=== PATIENT | male | born 1940 | race Caucasian/White ===

== ENCOUNTER 2022-05-20 08:59 | Emergency (ER) | payer MEDICARE, BC ==
[~2022-05-20] VITALS: Ht 177.8 cm; Wt 90.7 kg
[2022-05-20] MEDS ORDERED: CARV25 PO (09:46)
[2022-05-20] MEDS ORDERED: LOSA25 PO (09:46)
[2022-05-20 10:21] LABS: BASOPHILS ABSOLUTE AUTO 0.02 K/mm3 (0.00-0.23); BASOPHILS PERCENT AUTO 0 % (0-2); EOSINOPHILS ABSOLUTE AUTO 0.17 K/mm3 (0.00-0.68); EOSINOPHILS PERCENT AUTO 4 % (0-6); Hematocrit 42.9 % (37.0-53.0); Hemoglobin 14.2 g/dL (13.5-17.5); IMMATURE GRAN ABSOLUTE AUTO 0.01 K/mm3 (0.00-0.10); IMMATURE GRAN PERCENT AUTO 0 % (0-1); LYMPHOCYTES ABSOLUTE AUTO 0.81 K/mm3 (0.84-5.20); LYMPHOCYTES PERCENT AUTO 17 % (21-46); MONOCYTES ABSOLUTE AUTO 0.35 K/mm3 (0.16-1.47); MONOCYTES PERCENT AUTO 7 % (4-13); Mean Corpuscular HGB 27.9 pg (26.0-34.0); Mean Corpuscular HGB Conc 33.1 g/dL (31.5-36.5); Mean Corpuscular Volume 84 fL (80-100); Mean Platelet Volume 9.7 fL (9.1-12.4); NEUTROPHILS ABSOLUTE AUTO 3.34 K/mm3 (1.96-9.15); NEUTROPHILS PERCENT AUTO 71 % (41-73); Platelet Count 177 K/mm3 (150-400); RDW Standard Deviation 39.8 fL (35.1-46.3); Red Blood Cell Count 5.09 M/mm3 (4.30-5.90)
[2022-05-20 10:49] LABS: Albumin, Blood 3.5 g/dL (3.4-5.0); Albumin/Globulin Ratio 1.1 (0.8-1.8); Bilirubin, Total 0.9 mg/dL (0.1-1.0); Bun/Creatinine Ratio 12.1 (12.0-20.0); Calcium, Blood 9.2 mg/dL (8.5-10.1); Creatinine, Blood 1.32 mg/dL (0.60-1.20); Globulin, Blood 3.2 g/dL (2.2-4.0); Magnesium, Blood 2.2 mg/dL (1.6-2.4); Potassium, Blood 4.4 mmol/L (3.5-5.5); Thyroid Stimulating Hormone 1.08 uIU/mL (0.360-4.800); Total Protein, Blood 6.7 g/dL (6.4-8.2)
== END 2022-05-20 12:20 | disposition home or self-care (01) ==
LOC: ER 08:59
PROVIDERS: Emergency Medicine
DX: R00.2 Palpitations (principal); I10 Essential (primary) hypertension; Z79.899 Other long term (current) drug therapy; Z87.891 Personal history of nicotine dependence
CPT/HCPCS: 36415; 80053; 83735; 84443; 84484; 85025; 93005; 93010; 93246

== ENCOUNTER 2022-11-08 07:57 | Emergency (ER) | payer MEDICARE, BC ==
[~2022-11-08] VITALS: Ht 182.9 cm; Wt 95.2 kg
[~2022-11-08 07:57] MED LIST: CARV25 PO; LOSA25 PO
[2022-11-08] MEDS ORDERED: FINA5 PO (08:10)
[2022-11-08] MEDS ORDERED: ELIQUIS5 M2 PO (08:11)
[2022-11-08] MEDS ORDERED: TAMS.4ER PO (08:11)
[2022-11-08 08:34] LABS: Source, Urine Clean Catch
[2022-11-08 08:38] LABS: Appearance, Urine Clear (Clear); Bilirubin, Urine Neg (Neg); Blood, Urine Neg (Neg); Color, Urine Yellow (P-Yellow); Glucose Qualitative, Urine Neg (Neg); Ketones, Urine Neg (Neg); Leukocyte Esterase, Urine Neg (Neg); Nitrite, Urine Neg (Neg); Protein, Urine Neg (Neg); Specific Gravity, Urine 1.015 (1.003-1.022); Urobilinogen, Urine NORM (Normal)
[2022-11-08] MEDS ORDERED: Oxybutynin Chlor5 M1 PO ×2 (09:37→09:39)
== END 2022-11-08 09:54 | disposition home or self-care (01) ==
LOC: ER 07:57
PROVIDERS: Physician Assistant
DX: N32.81 Overactive bladder (principal); I10 Essential (primary) hypertension; Z79.899 Other long term (current) drug therapy; Z79.01 Long term (current) use of anticoagulants; Z87.891 Personal history of nicotine dependence
CPT/HCPCS: 81003

== ENCOUNTER 2023-03-03 23:56 | Emergency (ER) | payer MEDICARE, BC ==
[~2023-03-03] VITALS: Ht 182.9 cm; Wt 89.8 kg
[~2023-03-03 23:56] MED LIST changes: +ELIQUIS5 M2 PO; +FINA5 PO; +Oxybutynin Chlor5 M1 PO; +TAMS.4ER PO
[2023-03-04 00:08] VITALS: BP 141/78
[2023-03-04 00:20] LABS: Source, Urine Clean Catch
[2023-03-04 00:31] LABS: Bilirubin, Urine Neg (Neg); Blood, Urine 5+ (Neg); Glucose Qualitative, Urine Neg (Neg); Ketones, Urine Neg (Neg); Leukocyte Esterase, Urine 3+ (Neg); Nitrite, Urine Neg (Neg); Protein, Urine 1+ (Neg); Urobilinogen, Urine NORM (Normal)
[2023-03-04 00:41] LABS: Appearance, Urine Hazy (Clear); Color, Urine Yellow (P-Yellow)
[2023-03-04 00:47] LABS: Bacteria Few /hpf; Red Blood Cells, Urine 25-50 /hpf (0-2); Squamous Epithelial Cells Not Seen /hpf (Few); White Blood Cells, Urine 50-100 /hpf (0-5)
[2023-03-04] MEDS ORDERED: PHENA200 PO (02:44)
[2023-03-04] MEDS ORDERED: CIPR500 PO (02:44)
== END 2023-03-04 03:00 | disposition home or self-care (01) ==
LOC: ER 23:56
PROVIDERS: Student in an Organized Health Care Education/Training Program
DX: N39.0 Urinary tract infection, site not specified (principal); I10 Essential (primary) hypertension; Z87.442 Personal history of urinary calculi; Z79.01 Long term (current) use of anticoagulants; Z79.899 Other long term (current) drug therapy
CPT/HCPCS: 81001; 87086; 99283; A9270

== ENCOUNTER 2023-05-22 18:33 | Emergency (ER) | payer MEDICARE, BC ==
[~2023-05-22] VITALS: Ht 182.9 cm; Wt 90.7 kg
[~2023-05-22 18:33] MED LIST changes: +CEFP200 PO; +CIPR500 PO; +PHENA200 PO
[2023-05-22 19:01] LABS: Source, Urine Clean Catch
[2023-05-22 19:41] LABS: Appearance, Urine Clear (Clear); Bilirubin, Urine Neg (Neg); Blood, Urine Neg (Neg); Glucose Qualitative, Urine Neg (Neg); Ketones, Urine Neg (Neg); Leukocyte Esterase, Urine Neg (Neg); Nitrite, Urine Neg (Neg); Protein, Urine Neg (Neg); Urobilinogen, Urine NORM (Normal); pH, Urine 6.5 (5.0-8.0)
[2023-05-22 19:56] LABS: Color, Urine Pale Yellow (P-Yellow)
[2023-05-22 21:30] VITALS: BP 134/74
== END 2023-05-22 22:19 | disposition home or self-care (01) ==
LOC: ER 18:33
PROVIDERS: Student in an Organized Health Care Education/Training Program
DX: R35.0 Frequency of micturition (principal); Z79.899 Other long term (current) drug therapy; I10 Essential (primary) hypertension; Z87.891 Personal history of nicotine dependence
CPT/HCPCS: 81003

== ENCOUNTER 2024-10-19 07:05 | Inpatient (IN) | payer OTHER, MEDICARE ==
[~2024-10-19] VITALS: Ht 172.7 cm; Wt 94.0 kg
[2024-10-19] MEDS ORDERED: Albuterol 2.5 MG/3 ML VIAL INH SCH ×2 (07:25→09:45)
[2024-10-19] MEDS ORDERED: Ipratropium/Albuterol SulF 2.5-0.5MG/3 ML Amp INH ONE (07:25)
[2024-10-19] MEDS ORDERED: MethylPREDNISolone Sod Succ 125 MG Vial IV ONE (07:35)
[2024-10-19 07:37] LABS: BASOPHILS ABSOLUTE AUTO 0.01 K/mm3 (0.00-0.23); BASOPHILS PERCENT AUTO 0 % (0-2); EOSINOPHILS PERCENT AUTO 1 % (0-6); Hematocrit 42.1 % (37.0-53.0); Hemoglobin 14.5 g/dL (13.5-17.5); IMMATURE GRAN ABSOLUTE AUTO 0.03 K/mm3 (0.00-0.10); IMMATURE GRAN PERCENT AUTO 0 % (0-1); LYMPHOCYTES ABSOLUTE AUTO 0.79 K/mm3 (0.84-5.20); LYMPHOCYTES PERCENT AUTO 11 % (21-46); MONOCYTES ABSOLUTE AUTO 0.49 K/mm3 (0.16-1.47); MONOCYTES PERCENT AUTO 7 % (4-13); Mean Corpuscular HGB 27.9 pg (26.0-34.0); Mean Corpuscular HGB Conc 34.4 g/dL (31.5-36.5); Mean Corpuscular Volume 81 fL (80-100); Mean Platelet Volume 8.6 fL (9.1-12.4); NEUTROPHILS ABSOLUTE AUTO 5.87 K/mm3 (1.96-9.15); NEUTROPHILS PERCENT AUTO 81 % (41-73); Platelet Count 226 K/mm3 (150-400); RDW Coefficient Variation 13.1 % (11.7-14.2); White Blood Cell Count 7.29 K/mm3 (4.00-11.30)
[2024-10-19 08:01] LABS: Albumin, Blood 3.1 g/dL (3.4-5.0); Albumin/Globulin Ratio 0.8 (0.8-1.8); Bilirubin, Total 0.8 mg/dL (0.1-1.0); Bun/Creatinine Ratio 12.8 (12.0-20.0); Calcium, Blood 8.9 mg/dL (8.5-10.1); Creatinine, Blood 1.09 mg/dL (0.60-1.20); Magnesium, Blood 1.8 mg/dL (1.6-2.4); Potassium, Blood 4.1 mmol/L (3.5-5.5); Total Protein, Blood 7.1 g/dL (6.4-8.2)
[2024-10-19 08:39] LABS: Influenza B, PCR NEGATIVE (NEGATIVE); Resp Syncytial Virus, PCR NEGATIVE (NEGATIVE); SARS-Cov-2 (COVID-19) PCR, MMC NEGATIVE (NEGATIVE)
[2024-10-19 09:23] LABS: Influenza A, PCR POSITIVE (NEGATIVE)
[2024-10-19] MEDS ORDERED: Oseltamivir Phosphate 75 MG Cap PO ONE (09:45)
[2024-10-19] MEDS ORDERED: Ipratropium/Albuterol SulF 2.5-0.5MG/3 ML Amp INH SCH (11:50)
[2024-10-19] MEDS ORDERED: Prochlorperazine Edisylate 10 mg Vial IV PRN (11:55)
[2024-10-19] MEDS ORDERED: Azithromycin 500 MG in NS 250 ML IV ONE (12:40)
[2024-10-19 14:01] VITALS: BP 113/96
[2024-10-19] MEDS ORDERED: FLU VACC TS2024-25(6MOS UP)/PF 45 MCG/0.5 ML SYRINGE IM ONE (15:00)
[2024-10-19] MEDS ORDERED: EZET10 PO (15:24)
[2024-10-19] MEDS ORDERED: METO100ER PO (15:25)
[2024-10-19] MEDS ORDERED: GABA300 PO (15:26)
[2024-10-19] MEDS ORDERED: Crestor40 MG PO (15:27)
[2024-10-19] MEDS ORDERED: TIOT18 INH (15:27)
--- NOTE | 2024-10-19 15:41 | NUR ---
ADMISSION NOTE: PATIENT ARRIVED TO THE UNIT AT 1355 VIA GURNEY. HE WAS ABLE TO SELF TRANSFER TO THE BED. HE IS SHORT OF BREATH, USING 2 L OF NASAL CANNULA WHEN NORMALLY ON ROOMAIR. PATIENT SETTLED IN ROOM, ALERT AND ORIENTED, PLEASANT/COOPERATIVE, MAKES NEEDS KNOWN. HE IS IN BED, FAMILY AT BEDSIDE, NO SIGNS OR SYMPTOMS OF DISTRESS, CALL LIGHT WITHIN REACH, PLAN OF CARE ONGOING.
[2024-10-19] MEDS ORDERED: MethylPREDNISolone Sod Succ 125 MG Vial IV SCH (16:00)
--- NOTE | 2024-10-19 16:52 | NUR ---
CALLED AND NOTIFIED DR. VILLAGOMEZ OF PATIENT'S BLOOD SUGAR OF 310. HE VERBALIZED TO START PATIENT ON A HUMALOG LOW SLIDING SCALE. ALSO REQUESTING SOMETHING FOR PATIENT'S COUGH, ORDER FOR TESSALON PEARLS 100 MG QID PRN WAS VERBALLY GIVEN.
[2024-10-19] MEDS ORDERED: Benzonatate 100 MG Cap PO PRN (16:55)
[2024-10-19] MEDS ORDERED: Carvedilol 6.25 MG Tab PO SCH (17:00)
[2024-10-19] MEDS ORDERED: Insulin Human Lispro 100 Units/ML 3ML Syringe SC ONE (17:15)
--- NOTE | 2024-10-19 17:16 | NUR ---
SHIFT SUMMARY: NO EVENTS OR CHANGES WITH THE PATIENT SINCE ADMISSION. HE IS IN BED, CALL LIGHT WITHIN REACH, NO SIGNS OR SYMPTOMS OF DISTRESS, PLAN OF CARE ONGOING.
[2024-10-19] MEDS ORDERED: Albuterol 2.5 MG/3 ML VIAL INH PRN (18:15)
--- NOTE | 2024-10-19 20:10 | NUR ---
NEW T-ORDER RECEIVED FROM ON-CALL HOSPITALIST MADDIE: GABAPENTIN 300MG TID PO. THIS ADVERTISING JOB TITLES ALSO ASKED ABOUT NEW PO ORDER FOR FLOMAX 0.4MG ORDER @ HS, BUT NOTICED IT WAS ALREADY ORDERED FOR QAM. DID NOT CHANGE THE CURRENT ORDER. ENTERED GABAPENTIN ORDER TO [employer], SEE EMAR. NO ADDITIONAL NEW ORDERS AT THIS TIME.
[2024-10-19] MEDS ORDERED: Apixaban 5 MG Tab PO SCH (21:00)
[2024-10-19] MEDS ORDERED: Insulin Human Lispro 100 Units/ML 3ML Syringe SC SCH (21:00)
[2024-10-19] MEDS ORDERED: Gabapentin 300 MG Cap PO SCH (21:00)
[2024-10-19 21:14] VITALS: BP 130/72
--- NOTE | 2024-10-20 03:06 | NUR ---
SHIFT SUMMARY @HS PT REQUESTING GABAPENTIN AND HS MEDICATION REGIMEN THAT HE TAKES @HOME. PT APPEARED AGITATED WHEN LATER ADMINISTERING THE MEDICATIONS (SEE PREVIOUS NOTE). PT REPORTED AT HS THAT WOULD LIKE TO D/C TOMORROW MORNING. THIS EMERGENCY MANAGEMENT PROGRAM SPECIALIST USED ACTIVE LISTENING AND EMPHATY. PT IS ON 2L O2 VIA NASAL CANNULA, O2 SAT'S> 93%. PT DENIES PAIN. OCCASIONAL NON-PRODUCTIVE COUGH NOTED @HS. BED AT THE LOWEST POSITION, CALL LIGHT WITHIN REACH. PT IS A&O X4, ABLE TO MAKE HIS NEEDS KNOWN.
[2024-10-20 05:10] LABS: Base Excess Venous -0.1 mmol/L; Bicarbonate Venous 24.4 mmol/L (24.0-30.0); PCO2 Venous 36.8 mmHg (38-42); pH Blood Venous 7.43 (7.34-7.37)
[2024-10-20 05:42] LABS: Hematocrit 37.6 % (37.0-53.0); Mean Corpuscular HGB 27.9 pg (26.0-34.0); Mean Corpuscular HGB Conc 34.6 g/dL (31.5-36.5); Mean Corpuscular Volume 81 fL (80-100); Platelet Count 246 K/mm3 (150-400); RDW Standard Deviation 37.3 fL (35.1-46.3); Red Blood Cell Count 4.66 M/mm3 (4.30-5.90); White Blood Cell Count 9.83 K/mm3 (4.00-11.30)
[2024-10-20 06:17] VITALS: BP 130/60
[2024-10-20 06:25] LABS: Bun/Creatinine Ratio 20.5 (12.0-20.0); Calcium, Blood 9.5 mg/dL (8.5-10.1); Creatinine, Blood 1.22 mg/dL (0.60-1.20); Potassium, Blood 4.5 mmol/L (3.5-5.5)
[2024-10-20 07:55] VITALS: BP 124/74
--- NOTE | 2024-10-20 08:02 | NUR ---
ASSUMED CARE OF PATIENT. FAMILY IN TO VISIT.
[2024-10-20] MEDS ORDERED: Losartan Potassium 50 MG Tab PO SCH (09:00)
[2024-10-20] MEDS ORDERED: Azithromycin 250 MG Tab PO SCH (09:00)
[2024-10-20] MEDS ORDERED: Finasteride 5 MG Tab PO SCH (09:00)
[2024-10-20] MEDS ORDERED: Tamsulosin HCl 0.4 MG Cap PO SCH ×2 (09:00→21:00)
[2024-10-20] MEDS ORDERED: METF500 PO (10:22)
[2024-10-20 15:03] VITALS: BP 127/65
--- NOTE | 2024-10-20 17:38 | NUR ---
END OF SHIFT SUMMARY: A&Ox4. PLEASANT AND COOPERATIVE WITH CARE. CALLS APPROPRIATELY AND IS ABLE TO ADVOCATE NEEDS EFFECTIVELY. INDEPENDENT WITH AMBULATION IN ROOM. CONTINENT OF BOWEL AND BLADDER. SHOWERED TODAY. LUNGS CONTINUE TO BE VERY COARSE THROUGHOUT. SUCTION @ BEDSIDE AND SELF-SUCTIONS. NO C / O PAIN OR DISCOMFORT. CONTINUES WITH IV STEROIDS. BLOOD SUGARS HIGH TODAY, LIKELY RELATED TO STEROIDS. THIS IS A NEW DIAGNOSIS; EDUCATION PROVIDED ON DM SUGARS WNL. BED IN LOWEST POSITION, CALL LIGHT WITHIN REACH, ALL NEEDS MET. REPORT TO ONCOMING NURSE.
[2024-10-20 20:11] VITALS: BP 139/68
[2024-10-20] MEDS ORDERED: Insulin Glargine-Yfgn 100 Unit/mL 3 ML SYR SC SCH (21:00)
[2024-10-20] MEDS ORDERED: PredniSONE 20 MG Tab PO SCH (21:00)
--- NOTE | 2024-10-20 21:46 | NUR ---
@ B. ON-CALL HOSPITALIST SUELLEN NOTIFIED. INSULIN ADMINISTERED ORDERED PER EMAR. NO NEW ORDERS AT THIS TIME.
--- NOTE | 2024-10-21 03:42 | NUR ---
SHIFT SUMMARY NO ACUTE EVENTS DURING THIS SHIFT. HS B, ON-CALL HOSPITALIST NOTIFIED. SCHEDULED GLARGINE AND HUMALOG ADMINISTERED ORDERED. PT CONTINUES ON 2L O2 VIA NASAL CANNULA, SAT'S>93%. TESSALON PEARLS PO PRN FOR PRODUCTIVE COUGH ADMINISTERED ORDERED. PT IS A/O X4, ABLE TO MAKE HIS NEEDS KNOWN AND COOPERATIVE WITH CARE. BED AT THE LOWEST POSITION, CALL LIGHT WITHIN REACH.
[2024-10-21 04:56] VITALS: BP 147/75
[2024-10-21 05:31] LABS: Base Excess Venous -0.4 mmol/L; Bicarbonate Venous 25.3 mmol/L (24.0-30.0); pH Blood Venous 7.55 (7.34-7.37)
[2024-10-21 05:35] LABS: BASOPHILS ABSOLUTE AUTO 0.01 K/mm3 (0.00-0.23); BASOPHILS PERCENT AUTO 0 % (0-2); EOSINOPHILS PERCENT AUTO 0 % (0-6); Hematocrit 36.2 % (37.0-53.0); Hemoglobin 12.3 g/dL (13.5-17.5); IMMATURE GRAN ABSOLUTE AUTO 0.11 K/mm3 (0.00-0.10); IMMATURE GRAN PERCENT AUTO 1 % (0-1); LYMPHOCYTES ABSOLUTE AUTO 0.52 K/mm3 (0.84-5.20); LYMPHOCYTES PERCENT AUTO 4 % (21-46); MONOCYTES PERCENT AUTO 4 % (4-13); Mean Corpuscular HGB 27.8 pg (26.0-34.0); Mean Corpuscular Volume 82 fL (80-100); Mean Platelet Volume 9.2 fL (9.1-12.4); NEUTROPHILS ABSOLUTE AUTO 10.61 K/mm3 (1.96-9.15); NEUTROPHILS PERCENT AUTO 90 % (41-73); Platelet Count 242 K/mm3 (150-400); RDW Standard Deviation 38.5 fL (35.1-46.3); Red Blood Cell Count 4.42 M/mm3 (4.30-5.90); White Blood Cell Count 11.75 K/mm3 (4.00-11.30)
--- NOTE | 2024-10-21 05:45 | NUR ---
CRITICAL LAB VALUE RECEIVED FROM BLOSSOM Valdes FROM THE RESPIRATORY @ 0435: VBG pH: 7.55. @8102 this medical underwriter notified the on-call hospitalist . [employer] Clerk Grayson notified.
[2024-10-21 06:04] LABS: Bun/Creatinine Ratio 29.2 (12.0-20.0); Calcium, Blood 9.2 mg/dL (8.5-10.1); Creatinine, Blood 1.06 mg/dL (0.60-1.20); Potassium, Blood 4.7 mmol/L (3.5-5.5)
[2024-10-21 07:19] VITALS: BP 137/72
[2024-10-21] MEDS ORDERED: MetFORMIN HCl 500 mg PO SCH ×2 (09:30→17:00)
[2024-10-21 15:28] VITALS: BP 137/98
[2024-10-21] MEDS ORDERED: PredniSONE 10 MG Tab PO SCH (18:00)
[2024-10-21 19:59] VITALS: BP 141/85
--- NOTE | 2024-10-22 02:56 | NUR ---
SHIFT SUMMARY NO ACUTE OVERNIGHT EVENTS. PT CONTINUES ON DROPLET ISOLATION D/T DX OF INFLUENZA A. PT HAS A PRODUCTIVE COUGH, PRN TESSALON PEARLS ADMINISTERED ORDERED @HS. PT CONTINUES ON RA, O2 SAT'S> MID 90'S. PT REPORTS FEELING A BIT BETTER. HS B. BED AT THE LOWEST POSITION, CALL LIGHT W/I REACH. PT IS ABLE TO MAKE HIS NEEDS KNOWN, AND IS COOPERATIVE WITH CARE.
[2024-10-22 04:05] VITALS: BP 127/59
[2024-10-22 06:12] LABS: BASOPHILS ABSOLUTE AUTO 0.01 K/mm3 (0.00-0.23); BASOPHILS PERCENT AUTO 0 % (0-2); EOSINOPHILS PERCENT AUTO 0 % (0-6); Hematocrit 37.2 % (37.0-53.0); Hemoglobin 12.5 g/dL (13.5-17.5); IMMATURE GRAN ABSOLUTE AUTO 0.13 K/mm3 (0.00-0.10); IMMATURE GRAN PERCENT AUTO 1 % (0-1); LYMPHOCYTES ABSOLUTE AUTO 0.57 K/mm3 (0.84-5.20); LYMPHOCYTES PERCENT AUTO 6 % (21-46); MONOCYTES ABSOLUTE AUTO 0.44 K/mm3 (0.16-1.47); MONOCYTES PERCENT AUTO 4 % (4-13); Mean Corpuscular HGB 27.8 pg (26.0-34.0); Mean Corpuscular HGB Conc 33.6 g/dL (31.5-36.5); Mean Corpuscular Volume 83 fL (80-100); NEUTROPHILS ABSOLUTE AUTO 8.88 K/mm3 (1.96-9.15); NEUTROPHILS PERCENT AUTO 89 % (41-73); Platelet Count 273 K/mm3 (150-400); RDW Coefficient Variation 13.2 % (11.7-14.2); RDW Standard Deviation 39.2 fL (35.1-46.3); White Blood Cell Count 10.03 K/mm3 (4.00-11.30)
[2024-10-22 06:49] LABS: Bun/Creatinine Ratio 28.2 (12.0-20.0); Calcium, Blood 9.1 mg/dL (8.5-10.1); Creatinine, Blood 1.1 mg/dL (0.60-1.20); Potassium, Blood 4.4 mmol/L (3.5-5.5)
[2024-10-22 07:04] VITALS: BP 122/70
[2024-10-22] MEDS ORDERED: PredniSONE 20 MG Tab PO SCH (09:00)
--- NOTE | 2024-10-22 10:53 | NUR ---
PT AMBULATED THIS MORNING APPROXIMATELY 600 FEET ON RA IN THE HALLWAY THIS MORNING AT 0800. O2 SATS WERE 96% ON RA PRIOR TO AMBULATION. SATS DROPPED TO 93% AND MAINTAINED 93% WHILE AMBULATING. PT BECAME SLIGHTLY SOB AND RECOVERED QUICKLY ONCE HE WAS AT REST AGAIN. NOTIFIED OF RESULTS.
[2024-10-22] MEDS ORDERED: BENZ100A PO (11:37)
[2024-10-22] MEDS ORDERED: LOSA50 PO (11:37)
[2024-10-22] MEDS ORDERED: FINA5 PO (11:37)
[2024-10-22] MEDS ORDERED: Prednisone10 MG PO (11:38)
[2024-10-22] MEDS ORDERED: AZIT250 PO (11:39)
--- NOTE | 2024-10-22 12:07 | NUR ---
DISCHARGE SUMMARY: PT DISCHARGED HOME TODAY. PT EDUCATED ON DISCHARGE INSTRUCTIONS AND MEDICATIONS. PT V/U. ASSISTED PT WITH PACKING UP BELONGINGS. PT ESCORTED TO POV, SON PICKING HIM UP BY WHEELCHAIR.
== END 2024-10-22 12:01 | disposition home or self-care (01) | DRG 189 ==
LOC: ER 07:05 → MEDS 11:49
PROVIDERS: Internal Medicine; Student in an Organized Health Care Education/Training Program; ADMIT Internal Medicine
DX: J96.01 Acute respiratory failure with hypoxia (principal); J44.1 Chronic obstructive pulmonary disease with (acute) exacerbation; J10.1 Influenza due to other identified influenza virus with other respiratory manifestations; I10 Essential (primary) hypertension; Z66 Do not resuscitate; N40.0 Benign prostatic hyperplasia without lower urinary tract symptoms; E11.9 Type 2 diabetes mellitus without complications; R19.7 Diarrhea, unspecified; Z87.442 Personal history of urinary calculi; Z88.0 Allergy status to penicillin; Z79.01 Long term (current) use of anticoagulants; Z79.899 Other long term (current) drug therapy; Z98.890 Other specified postprocedural states; Z87.891 Personal history of nicotine dependence; Z79.84 Long term (current) use of oral hypoglycemic drugs; Z28.21 Immunization not carried out because of patient refusal; Z68.35 Body mass index [BMI] 35.0-35.9, adult; Z86.718 Personal history of other venous thrombosis and embolism
CPT/HCPCS: 0241U; 36415; 71045; 80048; 80053; 82803; 82947; 83735; 84145; 85025; 85027; 93005; 93010; 94640; 94644; 94645; 94664; 94760; 96374; 99285-25; A9270; J0456; J1815; J2919; J7050; J7512